=== PATIENT | male | born 1980 | race African-American/Black ===

== ENCOUNTER 2019-07-14 12:10 | Emergency (ER) | payer BC ==
[~2019-07-14] VITALS: Ht 180.3 cm; Wt 98.0 kg
--- NOTE | 2019-07-14 12:10 | NUR ---
Patient ambulated to room 3, c/o R knee pains after ground level fall while "walking his dog".
--- NOTE | 2019-07-14 12:42 | NUR ---
Knee immobilizer on. Patient refused [email or web address]. Patient discharged to home in stable conditon. Written and verbal after care instructions given to patient. Patient verbalizes understanding & compliance of instructions.
== END 2019-07-14 12:44 | disposition home or self-care (01) ==
LOC: ER 12:10
DX: S89.91XA Unspecified injury of right lower leg, initial encounter (principal); Z88.0 Allergy status to penicillin; W01.0XXA Fall on same level from slipping, tripping and stumbling without subsequent striking against object, initial encounter; Y93.89 Activity, other specified; Y92.89 Other specified places as the place of occurrence of the external cause; Y99.8 Other external cause status
CPT/HCPCS: A4663

== ENCOUNTER 2023-08-06 21:59 | Inpatient (IN) | payer BC, OTHER ==
[~2023-08-06] VITALS: Ht 175.3 cm; Wt 93.0 kg
[2023-08-06] MEDS ORDERED: LISI2.5T14 PO (22:31)
[2023-08-06] MEDS ORDERED: AMLO-212 PO (22:31)
[2023-08-06] MEDS ORDERED: METF-440 PO (22:31)
[2023-08-06] MEDS ORDERED: ATOR40TA PO (22:31)
[2023-08-06] MEDS ORDERED: ONDANSETRON 4 MG/2 ML VIAL IV ONE (22:45)
[2023-08-06] MEDS ORDERED: IV NORMAL SALINE 1000 ML BAG IV ONE (22:45)
[2023-08-06] MEDS ORDERED: ONDANSETRON 4 MG/2 ML VIAL ONE (22:51)
[2023-08-06 22:55] LABS: BASOPHILS % (AUTO) 0.3 % (0.0-2.0); EOSINOPHILS % (AUTO) 0.2 % (0.0-7.0); HEMATOCRIT 40.3 % (36.7-47.1); HEMOGLOBIN 16.7 g/dL (12.5-16.3); LYMPHOCYTES # (AUTO) 1.8 K/uL (0.8-4.8); LYMPHOCYTES % (AUTO) 15.7 % (20.5-51.5); MEAN CORPUSCULAR HEMOGLOBIN 33.8 uug (23.8-33.4); MEAN CORPUSCULAR HGB CONC 42 g/dL (32.5-36.3); MEAN CORPUSCULAR VOLUME 81.5 fL (73.0-96.2); MONOCYTES # (AUTO) 0.9 K/uL (0.1-1.30); MONOCYTES % (AUTO) 8.3 % (0.0-11.0); NEUTROPHILS # (AUTO) 8.5 K/uL (1.8-8.9); NEUTROPHILS % (AUTO) 75.5 % (38.5-71.5); PLATELET COUNT (AUTO) 212 K/uL (152-348); RED BLOOD CELL COUNT(AUTO) 4.95 MIL/uL (4.06-5.63); RED CELL DISTRIBUTION WIDTH 15.2 % (12.1-16.2); WHITE BLOOD COUNT (AUTO) 11.3 K/uL (3.6-10.2)
[2023-08-06 22:57] LABS: DIFFERENTIAL COMMENT 1
[2023-08-06 22:59] LABS: *BILIRUBIN,URIN NEGATIVE (NEGATIVE); *BLOOD, URINE NEGATIVE (NEGATIVE); *CLARITY,URINE CLEAR (CLEAR); *COLOR,URINE YELLOW (YELLOW); *KETONES,URINE 2+ (NEGATIVE); *PROTEIN,URINE 1+ (NEGATIVE); *UROBILINOGEN,URINE 0.2 E.U./dl (NORMAL); LEUKOCYTE ESTERASE ,URINE NEGATIVE (NEGATIVE); NITRITE, URINE NEGATIVE (NEGATIVE); PH,URINE 8.5 (5.0-8.0)
[2023-08-06 23:00] LABS: UGLUCOSE 2+ (NEGATIVE)
[2023-08-06 23:19] LABS: CARBON DIOXIDE 19 mmol/L (21-32); CHLORIDE 94 mmol/L (98-107); GLUCOSE 389 mg/dL (74-106); POTASSIUM 3.5 mmol/L (3.5-5.1); SODIUM SERUM 129 mmol/L (136-145)
[2023-08-06 23:34] LABS: ACETONE, SERUM TRACE (NEGATIVE)
[2023-08-06 23:45] LABS: CREATINE KINASE, TOTAL 360 U/L (39-308)
[2023-08-06] MEDS ORDERED: LORAZEPAM 2 MG/1 ML VIAL ONE (23:45)
[2023-08-06] MEDS ORDERED: LORAZEPAM 2 MG/1 ML VIAL IV ONE (23:45)
[2023-08-07] MEDS ORDERED: POTASSIUM CHLORIDE 20 MEQ TAB.PRT.SR PO ONE (01:00)
[2023-08-07] MEDS ORDERED: IV NS 1000 ML 1,000 ML IV ONE (01:00)
[2023-08-07 01:50] LABS: CALCIUM 8.1 mg/dL (8.5-10.1); CREATININE 1.1 mg/dL (0.6-1.3); UREA NITROGEN, BLOOD 11 mg/dL (7-18)
[2023-08-07] MEDS ORDERED: POTASSIUM CHLORIDE 20 MEQ in IV NS 1000 ML 1,000 ML IV STA (01:53)
[2023-08-07] MEDS ORDERED: POTASSIUM CHLORIDE 50 ML ONE ×2 (02:12)
[2023-08-07] MEDS ORDERED: METOCLOPRAMIDE HCL 10 MG/2 ML VIAL ONE (02:12)
[2023-08-07] MEDS ORDERED: MAGNESIUM HYDROXIDE 30 ML LIQUID UDC PO PRN (02:15)
[2023-08-07] MEDS ORDERED: INSULIN REGULAR, HUMAN 300 UNIT/3 ML VIAL SQ ONE (02:15)
[2023-08-07] MEDS ORDERED: METOCLOPRAMIDE HCL 10 MG/2 ML VIAL IV ONE (02:15)
[2023-08-07] MEDS ORDERED: ACETAMINOPHEN 325 MG TABLET PO PRN (02:15)
[2023-08-07] MEDS ORDERED: DEXTROSE 50% 50 ML DISP.SYRIN IV PRN (02:15)
[2023-08-07] MEDS ORDERED: ONDANSETRON 4 MG/2 ML VIAL IV PRN (02:15)
[2023-08-07] MEDS: BLOOD SUGAR DIAGNOSTIC 1 EACH STRIP VI SCH ×10 (04:23→23:43)
[2023-08-07] MEDS ORDERED: ENOXAPARIN SODIUM 40 MG/0.4 ML DISP.SYRIN SQ ONE (04:24)
[2023-08-07] MEDS ORDERED: INSULIN REGULAR, HUMAN 300 UNIT/3 ML VIAL ONE (04:24)
[2023-08-07] MEDS: ENOXAPARIN SODIUM 40 MG/0.4 ML DISP.SYRIN SQ SCH ×2 (04:29→21:39)
[2023-08-07 04:59] LABS: LACTIC ACID 2.5 mmol/L (0.4-2.0)
[2023-08-07] MEDS: INSULIN REGULAR, HUMAN 300 UNIT/3 ML VIAL SQ PRN ×6 (07:17→21:43)
[2023-08-07 10:04] LABS: CALCIUM 8.6 mg/dL (8.5-10.1); POTASSIUM 4.5 mmol/L (3.5-5.1)
[2023-08-07 10:05] LABS: CREATININE 1.1 mg/dL (0.6-1.3)
[2023-08-07 10:05] LABS: BILIRUBIN,DIRECT 0.1 mg/dL (0.0-0.2); BILIRUBIN,TOTAL 1.4 mg/dL (0.2-1.0)
[2023-08-07] MEDS: IV NS 1000 ML 1,000 ML IV PRN (18:35)
[2023-08-07 20:00] VITALS: BP 113/72; TEMP 98.1; O2SAT 97
[2023-08-08] MEDS: BLOOD SUGAR DIAGNOSTIC 1 EACH STRIP VI SCH ×4 (00:59→07:15)
[2023-08-08 01:58] VITALS: BP 112/64; TEMP 97.7; O2SAT 99
[2023-08-08 05:30] VITALS: BP 112/68; TEMP 97.8; O2SAT 98
[2023-08-08] MEDS: INSULIN REGULAR, HUMAN 300 UNIT/3 ML VIAL SQ PRN ×3 (05:32→12:41)
[2023-08-08 06:38] LABS: BASOPHILS % (AUTO) 0.4 % (0.0-2.0); EOSINOPHILS # (AUTO) 0.1 K/uL (0.0-0.7); EOSINOPHILS % (AUTO) 1.1 % (0.0-7.0); HEMATOCRIT 38.8 % (36.7-47.1); HEMOGLOBIN 13.3 g/dL (12.5-16.3); LYMPHOCYTES # (AUTO) 2.4 K/uL (0.8-4.8); LYMPHOCYTES % (AUTO) 37.2 % (20.5-51.5); MEAN CORPUSCULAR HEMOGLOBIN 28.5 uug (23.8-33.4); MEAN CORPUSCULAR HGB CONC 34 g/dL (32.5-36.3); MONOCYTES # (AUTO) 0.4 K/uL (0.1-1.30); MONOCYTES % (AUTO) 5.7 % (0.0-11.0); NEUTROPHILS # (AUTO) 3.6 K/uL (1.8-8.9); NEUTROPHILS % (AUTO) 55.6 % (38.5-71.5); PLATELET COUNT (AUTO) 190 K/uL (152-348); RED BLOOD CELL COUNT(AUTO) 4.68 MIL/uL (4.06-5.63); RED CELL DISTRIBUTION WIDTH 15.3 % (12.1-16.2); WHITE BLOOD COUNT (AUTO) 6.4 K/uL (3.6-10.2)
[2023-08-08 06:44] LABS: DIFFERENTIAL COMMENT 1
[2023-08-08] MEDS: IV NS 1000 ML 1,000 ML IV PRN (08:03)
[2023-08-08 08:51] VITALS: BP 108/58; TEMP 98.2; O2SAT 97
[2023-08-08 10:23] LABS: CALCIUM 8.7 mg/dL (8.5-10.1); CREATININE 1.2 mg/dL (0.6-1.3); PHOSPHOROUS 3.4 mg/dL (2.5-4.9); POTASSIUM 3.8 mmol/L (3.5-5.1); URIC ACID 4.2 mg/dL (3.5-7.2)
[2023-08-08 10:44] LABS: THYROID STIMULATING HORMONE 0.947 mIU/mL (0.358-3.740)
[2023-08-08] MEDS ORDERED: IV NS 1000 ML 1,000 ML IV SCH (11:30)
[2023-08-08 12:00] VITALS: BP 128/72; TEMP 97.2; O2SAT 98
[2023-08-08] MEDS ORDERED: BLOOD SUGAR DIAGNOSTIC 1 EACH STRIP VI SCH (12:00)
[2023-08-08] MEDS ORDERED: SITA50TA PO (15:10)
[2023-08-08 16:00] VITALS: BP 135/82; TEMP 98.7; O2SAT 97
== END 2023-08-08 17:45 | disposition home or self-care (01) | DRG 638 ==
LOC: ER 22:01 → TRANSITION 08-07 02:05 → TELE3 08-07 17:24
PROVIDERS: ADMIT Nurse Practitioner Acute Care; ATTEND Nurse Practitioner Acute Care
DX: E11.10 Type 2 diabetes mellitus with ketoacidosis without coma (principal); E87.1 Hypo-osmolality and hyponatremia; M62.82 Rhabdomyolysis; E86.1 Hypovolemia; E86.0 Dehydration; R10.84 Generalized abdominal pain; E83.51 Hypocalcemia; E87.6 Hypokalemia; Z88.0 Allergy status to penicillin; I10 Essential (primary) hypertension; Z79.84 Long term (current) use of oral hypoglycemic drugs; R79.89 Other specified abnormal findings of blood chemistry; E11.65 Type 2 diabetes mellitus with hyperglycemia; Z79.899 Other long term (current) drug therapy
CPT/HCPCS: 36415; 82533; 83605; 83735; 84100; 84443; 84484; 84550; 85025; 85730; 93005; A4606; A4663; A6213; G0378; J1650; J1815; J2060; J2405; J2765; J3480; J7040